=== PATIENT | male | born 1960 | race American Indian/Alaskan Native ===

== ENCOUNTER 2017-07-14 00:29 | Inpatient (IN) | payer OTHER ==
[2017-07-14] MEDS ORDERED: DUONEB *Not for PRN Use IH ONE (00:50)
[2017-07-14] MEDS ORDERED: TYLENOL PO ONE ×2 (00:58→08:05)
[2017-07-14] MEDS ORDERED: XOPENEX IH ONE ×2 (01:02→08:04)
[2017-07-14] MEDS ORDERED: ATROVENT IH ONE ×2 (01:02→08:05)
[2017-07-14 02:38] LABS: Basophils # (Auto) 0.1 K/mm3 (0.0-0.1); Basophils % (Auto) 0.9 % (0.0-1.8); Eosinophils # (Auto) 0.1 K/mm3 (0.0-0.4); Eosinophils % (Auto) 1.3 % (0.0-4.3); Hematocrit 41.6 % (35.5-45.6); Lymphocytes # (Auto) 1.7 K/mm3 (1.2-5.4); Lymphocytes % (Auto) 18.1 % (13.4-35.0); Mean Corpuscular HGB Conc 34 % (32-34); Mean Corpuscular Hemoglobin 31 pg (28-32); Mean Corpuscular Volume 92 fl (84-94); Monocytes # (Auto) 0.9 K/mm3 (0.0-0.8); Platelet Count 237 K/mm3 (140-440); Red Cell Distribution Width 14.4 % (13.2-15.2)
[2017-07-14 02:45] LABS: BUN/Creatinine Ratio 16; Blood Urea Nitrogen 14 mg/dL (9-20); Calcium 8.9 mg/dL (8.4-10.2); Hemolysis Index 2
--- NOTE | 2017-07-14 03:03 | XRay Report ---
FINAL REPORT EXAM: XR CHEST ROUTINE 2V HISTORY: cough TECHNIQUE: PA and lateral views of the chest were submitted. FINDINGS: Heart size and mediastinum appear normal. The lungs are clear. Pleural fluid is not seen. The bones and soft tissues are well maintained. IMPRESSION: No active chest disease.
[2017-07-14] MEDS ORDERED: MAGNESIUM SULFATE 2GM/50ML 2 GM/50 ML BAG IV ONE (06:45)
[2017-07-14] MEDS ORDERED: NORCO 5/325 PO ONE (08:05)
[2017-07-14] MEDS ORDERED: TESSALON PERLES PO ONE ×2 (08:05→17:29)
[2017-07-14] MEDS ORDERED: NACL 0.9% 1000 ML 1,000 ML IV ONE (08:06)
[2017-07-14] MEDS ORDERED: TORADOL IV ONE (08:10)
--- NOTE | 2017-07-14 08:11 | Emergency Department Report ---
ED Shortness of Breath HPI - General Chief Complaint: Adult Asthma Stated Complaint: SOB/AZUCENA Time Seen by Provider: 07/14/17 07:40 Source: patient Mode of arrival: Ambulatory Limitations: No Limitations - History of Present Illness Initial Comments: 57-year-old male with a past medical history asthma hypertension presents to the hospital complaining of cough, wheezing, fever, shortness of breath 3 days. Symptoms did not improve with home nebulized treatments. Positive moderate chest pain with cough and also chest tightness with wheezing. Patient denies receiving a flu shot this season. Cough productive of white sputum. No previous history of intubations. - Related Data Home Medications Medication Instructions Recorded Confirmed Last Taken Lisinopril [Zestril TAB] 40 mg PO DAILY 06/27/13 12/11/15 12/11/15 Hydrochlorothiazide [HCTZ] 2 cap PO QDAY 10/10/15 12/11/15 12/11/15 Previous Rx's Medication Instructions Recorded Last Taken Type ALBUTEROL Inhaler [ProAir HFA 2 puff IH BID PRN #1 inha 12/12/15 Unknown Rx Inhaler] ALBUTEROL NEB's [Proventil 0.083% 2.5 mg IH TID PRN #1 box 12/12/15 Unknown Rx NEBS] Prednisone [predniSONE 5 mg (6-Day 5 mg PO .TAPER #1 tab.ds.pk 12/12/15 Unknown Rx Pack, 21 Tabs)] Allergies Allergy/AdvReac Type Severity Reaction Status Date / Time No Known Allergies Allergy Verified 08/02/13 18:45 ED Review of Systems ROS: Stated complaint: SOB/AZUCENA Other details as noted in HPI Comment: All other systems reviewed and negative Other: Constitutional: as per hpi Eyes: No eye pain visual changes ENT: No ear pain or throat pain Neck: Denies pain Respiratory: as per hpi Cardiovascular: Denies palpitations, syncope GI: Denies abdominal pain, nausea, vomiting, diarrhea : Denies dysuria, urinary frequency, or urgency Musculoskeletal: Denies back pain, joint swelling Skin: Denies rash, lesions, erythema Neurologic: Denies headache, numbness, weakness Psychiatric: Denies suicidal ideation, hallucinations ED Past Medical Hx - Past Medical History Hx Hypertension: Yes Hx Congestive Heart Failure: No Hx Diabetes: No Hx Asthma: Yes Hx COPD: No Hx HIV: No - Surgical History Hx Cholecystectomy: Yes Hx Appendectomy: Yes Additional Surgical History: left ankle surgery - Social History Smoking Status: Current Some Day Smoker Substance Use Type: None - Medications Home Medications: Home Medications Medication Instructions Recorded Confirmed Last Taken Type Lisinopril [Zestril TAB] 40 mg PO DAILY 06/27/13 12/11/15 12/11/15 History Hydrochlorothiazide [HCTZ] 2 cap PO QDAY 10/10/15 12/11/15 12/11/15 History ALBUTEROL Inhaler [ProAir HFA 2 puff IH BID PRN #1 inha 12/12/15 Unknown Rx Inhaler] ALBUTEROL NEB's [Proventil 0.083% 2.5 mg IH TID PRN #1 box 12/12/15 Unknown Rx NEBS] Prednisone [predniSONE 5 mg (6-Day 5 mg PO .TAPER #1 tab.ds.pk 12/12/15 Unknown Rx Pack, 21 Tabs)] ED Physical Exam - General Limitations: No Limitations - Other Other exam information: General: No limitations, patient is alert in no acute distress Head exam: Atraumatic, normocephalic Eyes exam: Normal appearance ENT: Moist mucous membrane Neck exam: Normal inspection Respiratory exam: Poor air movement, positive wheezing, positive tachypnea, mild accessory muscle Cardiovascular: Tachycardic regular rate Abdomen: Soft, nondistended, and nontender, with normal bowel sounds, no rebound, or guarding Extremity: Full range of motion normal inspection no deformity, no calf tenderness or edema Back: Normal Inspection, full range of motion, no tenderness Neurologic: Alert, oriented x3, cranial nerves intact, no motor or sensory deficit Psychiatric: normal affect, normal mood Skin: Warm, dry, intact ED Course Vital Signs 07/14/17 07/14/17 07/14/17 00:33 00:59 01:01 Temperature 100.0 F H Pulse Rate 124 H Pulse Rate [ 122 H 121 H Anterior Bilateral Throughout] Respiratory 24 Rate Respiratory 24 24 Rate [Anterior Bilateral Throughout] Blood Pressure 125/95 O2 Sat by Pulse 96 Oximetry 07/14/17 07/14/17 07/14/17 01:35 01:45 06:32 Temperature 100.5 F H Pulse Rate 126 H Pulse Rate [ 122 H 120 H Anterior Bilateral Throughout] Respiratory 20 Rate Respiratory 22 20 Rate [Anterior Bilateral Throughout] Blood Pressure 138/89 O2 Sat by Pulse 95 Oximetry - Reevaluation(s) Reevaluation #1: 07/14/17 08:09 Patient received nebulized treatments, Solu-Medrol, magnesium, and Tylenol prior to my evaluation with minimal improvement in symptoms. Additional nebs, Tylenol, pain medicine, and cough medicine ordered prior to admission ED Medical Decision Making - Lab Data Result diagrams: 07/14/17 02:11 07/14/17 02:11 Lab Results 07/14/17 07/14/17 Range/Units 02:11 02:11 WBC 9.5 (4.5-11.0) K/mm3 RBC 4.50 (3.65-5.03) M/mm3 Hgb 14.0 (11.8-15.2) gm/dl Hct 41.6 (35.5-45.6) % MCV 92 (84-94) fl MCH 31 (28-32) pg MCHC 34 (32-34) % RDW 14.4 (13.2-15.2) % Plt Count 237 (140-440) K/mm3 Lymph % (Auto) 18.1 (13.4-35.0) % [place] % (Auto) 10.0 H (0.0-7.3) % Eos % (Auto) 1.3 (0.0-4.3) % Baso % (Auto) 0.9 (0.0-1.8) % Lymph # 1.7 (1.2-5.4) K/mm3 [place] # 0.9 H (0.0-0.8) K/mm3 Eos # 0.1 (0.0-0.4) K/mm3 Baso # 0.1 (0.0-0.1) K/mm3 Seg Neutrophils % 69.7 (40.0-70.0) % Seg Neutrophils # 6.6 (1.8-7.7) K/mm3 Sodium 137 (137-145) mmol/L Potassium 3.7 (3.6-5.0) mmol/L Chloride 95.7 L (98-107) mmol/L Carbon Dioxide 26 (22-30) mmol/L Anion Gap 19 mmol/L BUN 14 (9-20) mg/dL Creatinine 0.9 (0.8-1.5) mg/dL Estimated GFR > 60 ml/min BUN/Creatinine Ratio 16 % Glucose 100 (75-100) mg/dL Calcium 8.9 (8.4-10.2) mg/dL - EKG Data -: EKG Interpreted by Me (left anterior fascicular block) EKG shows normal: sinus rhythm, axis (-60), QRS complexes (103), ST-T waves (no stemi/t inv) Rate: tachycardia (123) - EKG Data When compared to previous EKG there are: no significant change - Radiology Data Radiology results: report reviewed (cxr: naf, read by radiology) - Medical Decision Making Plan to admit patient to hospital further treatment status asthmaticus. Positive acute infection possibly viral. Flu pending at disposition. No infiltrate seen. Patient cover with azithromycin for atypical pneumonia. - Differential Diagnosis pneumonia, bronchitis, viral syndrome, asthma Critical Care Time: No Critical care attestation.: If time is entered above; I have spent that time in minutes in the direct care of this critically ill patient, excluding procedure time. ED Disposition Clinical Impression: Acute asthmatic bronchitis, Fever, HTN (hypertension), Asthma with status asthmaticus in adult Disposition: DC-09 OP ADMIT IP TO THIS HOSP Is pt being admited?: Yes Condition: Stable Time of Disposition: 08:12 ([place]/Hospitalist)
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
[2017-07-14] MEDS ORDERED: ZOFRAN IV PRN (08:50)
[2017-07-14] MEDS ORDERED: PROVENTIL IH PRN (08:50)
[2017-07-14] MEDS ORDERED: TYLENOL PO PRN (08:50)
[2017-07-14] MEDS ORDERED: MORPHINE IV PRN (08:50)
[2017-07-14] MEDS ORDERED: DULCOLAX PR PRN (08:50)
[2017-07-14] MEDS ORDERED: ZITHROMAX 500 MG in NACL 0.9% 250ML 250 ML IV ONE (09:00)
[2017-07-14 09:33] LABS: Basophils # (Auto) 0.1 K/mm3 (0.0-0.1); Basophils % (Auto) 0.9 % (0.0-1.8); Eosinophils % (Auto) 0.3 % (0.0-4.3); Hematocrit 40.2 % (35.5-45.6); Hemoglobin 13.3 gm/dl (11.8-15.2); Lymphocytes # (Auto) 0.7 K/mm3 (1.2-5.4); Lymphocytes % (Auto) 7.4 % (13.4-35.0); Mean Corpuscular HGB Conc 33 % (32-34); Mean Corpuscular Hemoglobin 30 pg (28-32); Mean Corpuscular Volume 92 fl (84-94); Monocytes # (Auto) 0.3 K/mm3 (0.0-0.8); Monocytes % (Auto) 2.6 % (0.0-7.3); Platelet Count 244 K/mm3 (140-440); Red Blood Count 4.37 M/mm3 (3.65-5.03); Red Cell Distribution Width 14.3 % (13.2-15.2)
[2017-07-14 09:51] LABS: BUN/Creatinine Ratio 14; Blood Urea Nitrogen 11 mg/dL (9-20); Calcium 8.6 mg/dL (8.4-10.2); Hemolysis Index 10
[2017-07-14] MEDS ORDERED: NACL 0.9% 1000 ML 1,000 ML IV SCH (11:00)
[2017-07-14] MEDS: LOVENOX SUB-Q SCH (11:23)
[2017-07-14] MEDS: ZESTRIL PO SCH (11:23)
[2017-07-14] MEDS: DUONEB *Not for PRN Use IH SCH ×2 (15:50→20:51)
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
[2017-07-14] MEDS ORDERED: Fluarix Quad 2017-2018(36 MOS+ IM ONE (19:07)
[2017-07-14] MEDS ORDERED: PNEUMOVAX 23 IM ONE (19:07)
[2017-07-15] MEDS: DUONEB *Not for PRN Use IH SCH ×4 (02:09→21:05)
[2017-07-15 07:28] LABS: BUN/Creatinine Ratio 16; Blood Urea Nitrogen 13 mg/dL (9-20); Calcium 8.5 mg/dL (8.4-10.2); Hemolysis Index 7
[2017-07-15] MEDS ORDERED: ZITHROMAX 500 MG in NACL 0.9% 250ML 250 ML IV SCH (10:00)
[2017-07-15] MEDS: LOVENOX SUB-Q SCH (10:03)
[2017-07-15] MEDS: ZESTRIL PO SCH (10:33)
--- NOTE | 2017-07-15 11:29 | Progress Note ---
Assessment and Plan Assessment and plan: Acute respiratory failure due to asthma exacerbation. Mild improvement. Less shortness of breath. continue solumedrol Q 8hrs, Duoneb scheduled Q6h,, Oxygen supplementation. O2 sat 97%% on 4l/min oxygen Asthma exacerbation. solumedrol, Duoneb. Pulmonology following Hypertension. BP stable DVT prophylaxis with Lovenox subcut. Full code status History Interval history: Less shortness of breath less wheezing but still present Hospitalist Physical - Physical exam Narrative exam: GEN APPEARANCE : Not in acute distress, On Oxygen by GA HEENT: Normocephalic, Atraumatic NECK : supple, no JVD LUNGS: Bilateral rhonchi, wheeze, decreased breath sounds bilaterally HEART: S1 and S2 regular tachy, no murmurs, rubs or gallop ABD: Soft, non tender, non distended, normal bowel sounds EXT: No edema, no clubbing, no cyanosis, NEURO: Awake,alert, oriented x 3, no focal signs Psych: Normal mood - Constitutional Vitals: Temp Pulse Resp BP Pulse Ox 99.1 F 118 H 20 143/97 98 07/15/17 07:41 07/15/17 07:46 07/15/17 07:46 07/15/17 07:41 07/15/17 07:41 Results - Labs CBC & Chem 7: 07/14/17 09:09 07/15/17 05:05 Labs: Laboratory Last Values WBC 10.2 K/mm3 (4.5-11.0) 07/14/17 09:09 RBC 4.37 M/mm3 (3.65-5.03) 07/14/17 09:09 Hgb 13.3 gm/dl (11.8-15.2) 07/14/17 09:09 Hct 40.2 % (35.5-45.6) 07/14/17 09:09 MCV 92 fl (84-94) 07/14/17 09:09 MCH 30 pg (28-32) 07/14/17 09:09 MCHC 33 % (32-34) 07/14/17 09:09 RDW 14.3 % (13.2-15.2) 07/14/17 09:09 Plt Count 244 K/mm3 (140-440) 07/14/17 09:09 Lymph % (Auto) 7.4 % (13.4-35.0) L 07/14/17 09:09 [place] % (Auto) 2.6 % (0.0-7.3) 07/14/17 09:09 Eos % (Auto) 0.3 % (0.0-4.3) 07/14/17 09:09 Baso % (Auto) 0.9 % (0.0-1.8) 07/14/17 09:09 Lymph # 0.7 K/mm3 (1.2-5.4) L 07/14/17 09:09 [place] # 0.3 K/mm3 (0.0-0.8) 07/14/17 09:09 Eos # 0.0 K/mm3 (0.0-0.4) 07/14/17 09:09 Baso # 0.1 K/mm3 (0.0-0.1) 07/14/17 09:09 Seg Neutrophils % 88.8 % (40.0-70.0) H 07/14/17 09:09 Seg Neutrophils # 9.0 K/mm3 (1.8-7.7) H 07/14/17 09:09 Sodium 141 mmol/L (137-145) 07/15/17 05:05 Potassium 4.5 mmol/L (3.6-5.0) 07/15/17 05:05 Chloride 102.1 mmol/L (98-107) 07/15/17 05:05 Carbon Dioxide 24 mmol/L (22-30) 07/15/17 05:05 Anion Gap 19 mmol/L 07/15/17 05:05 BUN 13 mg/dL (9-20) 07/15/17 05:05 Creatinine 0.8 mg/dL (0.8-1.5) 07/15/17 05:05 Estimated GFR > 60 ml/min 07/15/17 05:05 BUN/Creatinine Ratio 16 % 07/15/17 05:05 Glucose 144 mg/dL (75-100) H 07/15/17 05:05 Calcium 8.5 mg/dL (8.4-10.2) 07/15/17 05:05
--- NOTE | 2017-07-15 15:57 | Progress Note ---
Assessment and Plan 57 y/o male with asthma exacerbation. 1. Continue BID pulmicort and brovana 2. Continue current dose of steroids 3. Will give lasix today. 4. PRN nebs Subjective Date of service: 07/15/17 Interval history: No acute events. Asleep. Breathing appears improved. Objective Vital Signs - 12hr 07/15/17 07/15/17 07/15/17 07:36 07:41 07:46 Temperature 99.1 F Pulse Rate 105 H Pulse Rate [ 104 H 118 H Anterior Bilateral Throughout] Respiratory 20 Rate Respiratory 20 20 Rate [Anterior Bilateral Throughout] Blood Pressure 143/97 O2 Sat by Pulse 97 98 Oximetry CBC and BMP: 07/14/17 09:09 07/15/17 05:05 Abnormal lab findings: Abnormal Labs 07/14/17 07/14/17 07/14/17 02:11 02:11 09:09 Lymph % (Auto) 7.4 L [place] % (Auto) 10.0 H Lymph # 0.7 L [place] # 0.9 H Seg Neutrophils % 88.8 H Seg Neutrophils # 9.0 H Sodium Chloride 95.7 L Glucose 07/14/17 07/15/17 09:09 05:05 Lymph % (Auto) [place] % (Auto) Lymph # [place] # Seg Neutrophils % Seg Neutrophils # Sodium 136 L Chloride 96.2 L Glucose 128 H 144 H
[2017-07-16] MEDS: DUONEB *Not for PRN Use IH SCH ×3 (02:05→13:23)
[2017-07-16] MEDS: LOVENOX SUB-Q SCH (09:46)
[2017-07-16] MEDS ORDERED: ZITHROMAX PO SCH (10:00)
--- NOTE | 2017-07-16 10:04 | Discharge Summary ---
Providers - Providers Date of Admission: 07/14/17 08:50 Date of discharge: 07/16/17 Attending physician: SUZE RAVI 07/14/17 08:54 Consult to Physician [CONS] Routine Consulting Provider: ARI THOMAS Reason For Exam: status asthmaticus Place consult to:: Linda Notified:: yes Phone number called:: [phone] If yes, spoke with:: Sarita Time called:: 13:13 Primary care physician: DILEEP CLEARY Hospitalization Condition: Stable Disposition: DC-30 STILL A PATIENT Exam - Constitutional Vitals: Temp Pulse Resp BP Pulse Ox 98.1 F 124 H 18 176/94 92 07/16/17 08:02 07/16/17 08:02 07/16/17 08:02 07/16/17 08:02 07/16/17 08:02 Plan Activity: advance as tolerated Diet: low fat, low cholesterol, low salt Additional Instructions: 1.Follow up with PCP in 1 week. 2.Follow up with Concetta Lopez in 1 week Follow up with: DILEEP CLEARY MD [Primary Care Provider] - 7 Days Prescriptions: Prednisone [predniSONE 10 mg (6-Day Pack, 21 Tabs)] 10 mg PO .TAPER #1 tab.ds.pk
[2017-07-16] MEDS ORDERED: COZAAR PO SCH (12:00)
--- NOTE | 2017-07-16 13:29 | Progress Note ---
Assessment and Plan 57 y/o male with asthma exacerbation. 1. Resume home asthma regimen 2. Needs prednisone taper vs medrol dose pack at discharge. Up to patient as he has had both in the past 3. No objection to discharge. 4. Would not send out on abx therapy. Subjective Date of service: 07/16/17 Interval history: Weaned off oxygen. Ready to go home. Objective Vital Signs - 12hr 07/16/17 07/16/17 07/16/17 02:05 02:17 07:19 Temperature Pulse Rate Pulse Rate [ 99 H 102 H 90 Anterior Bilateral Throughout] Respiratory Rate Respiratory 18 18 20 Rate [Anterior Bilateral Throughout] Blood Pressure O2 Sat by Pulse 98 Oximetry 07/16/17 07/16/17 07:30 08:02 Temperature 98.1 F Pulse Rate 124 H Pulse Rate [ 116 H Anterior Bilateral Throughout] Respiratory 18 Rate Respiratory 20 Rate [Anterior Bilateral Throughout] Blood Pressure 176/94 O2 Sat by Pulse 92 Oximetry CBC and BMP: 07/14/17 09:09 07/15/17 05:05 Abnormal lab findings: Abnormal Labs 07/14/17 07/14/17 07/14/17 02:11 02:11 09:09 Lymph % (Auto) 7.4 L [place] % (Auto) 10.0 H Lymph # 0.7 L [place] # 0.9 H Seg Neutrophils % 88.8 H Seg Neutrophils # 9.0 H Sodium Chloride 95.7 L Glucose 07/14/17 07/15/17 09:09 05:05 Lymph % (Auto) [place] % (Auto) Lymph # [place] # Seg Neutrophils % Seg Neutrophils # Sodium 136 L Chloride 96.2 L Glucose 128 H 144 H
[2017-07-16 14:33] VITALS: BP 148/90
== END 2017-07-16 18:15 | disposition home or self-care (01) | DRG 189 ==
LOC: ED 00:29 → 3A 08:50
PROVIDERS: ADMIT Internal Medicine; ATTEND Internal Medicine
PROC: 3E0234Z Introduction of Serum, Toxoid and Vaccine into Muscle, Percutaneous Approach (ICD-10-PCS; principal; 2017-07-14)
DX: J96.01 Acute respiratory failure with hypoxia (principal); J45.902 Unspecified asthma with status asthmaticus; I10 Essential (primary) hypertension; F17.200 Nicotine dependence, unspecified, uncomplicated; E66.9 Obesity, unspecified; Z79.899 Other long term (current) drug therapy; Z90.49 Acquired absence of other specified parts of digestive tract; Z68.34 Body mass index [BMI] 34.0-34.9, adult; Z82.49 Family history of ischemic heart disease and other diseases of the circulatory system; Z23 Encounter for immunization
CPT/HCPCS: 36415; 71046; 80048; 85025; 87400; 90686; 90732; 93005; 93010; 94640; 94760; 96374; 96375; J0456; J1650; J1885; J2930; J3475; J7030; J7050

== ENCOUNTER 2018-03-23 17:35 | Emergency (ER) | payer SELFPAY ==
[2018-03-23] MEDS ORDERED: NACL 0.9% 500 ML 500 ML IV ONE (17:53)
[2018-03-23 18:15] LABS: Basophils # (Auto) 0.1 K/mm3 (0.0-0.1); Basophils % (Auto) 0.8 % (0.0-1.8); Eosinophils # (Auto) 0.1 K/mm3 (0.0-0.4); Eosinophils % (Auto) 1.1 % (0.0-4.3); Hematocrit 40.1 % (35.5-45.6); Hemoglobin 13.2 gm/dl (11.8-15.2); Lymphocytes # (Auto) 1.7 K/mm3 (1.2-5.4); Lymphocytes % (Auto) 14.2 % (13.4-35.0); Mean Corpuscular HGB Conc 33 % (32-34); Mean Corpuscular Hemoglobin 31 pg (28-32); Mean Corpuscular Volume 93 fl (84-94); Monocytes # (Auto) 1.5 K/mm3 (0.0-0.8); Platelet Count 268 K/mm3 (140-440); Red Blood Count 4.31 M/mm3 (3.65-5.03); Red Cell Distribution Width 14.7 % (13.2-15.2)
[2018-03-23 18:24] LABS: INR 1.01 (0.87-1.13)
[2018-03-23 18:30] LABS: Alanine Aminotransferase 44 units/L (7-56); Albumin 3.9 g/dL (3.9-5); BUN/Creatinine Ratio 17; Blood Urea Nitrogen 15 mg/dL (9-20); Calcium 8.9 mg/dL (8.4-10.2); Hemolysis Index 5
--- NOTE | 2018-03-23 18:34 | Emergency Department Report ---
ED Fever HPI - General Chief Complaint: Fever Stated Complaint: PAIN IN RIGHT FOOT Time Seen by Provider: 03/23/18 18:11 Source: patient Exam Limitations: no limitations - History of Present Illness Initial Comments: 58-year-old male presents to the emergency room with complaints of fever. Patient status post right bunionectomy on yesterday. Patient reports since been having pain in right foot, in area of lateral and anterior great toe, since anesthesia wore off. Patient reports he had a prescription for Percocet filled but is not relieving the pain. Patient reports fever of 101. Patient called 's office and was told to come to the emergency room. Patient has history of asthma reports mild shortness of breath and wheezing, slight cough productive of white sputum. Patient denies urinary symptoms. Denies abdominal pain, nausea, vomiting. Timing/Duration: yesterday Fever Severity/Quality: greater than 100.5 F (101.2) Fever Therapy [employer]: Ibuprofen Associated Symptoms: cough, shortness of breath, other (foot pain). denies: abdominal pain, chest pain, headache, nausea/vomiting ED Review of Systems ROS: Stated complaint: PAIN IN RIGHT FOOT Other details as noted in HPI Comment: All other systems reviewed and negative Constitutional: fever Respiratory: cough, wheezing Cardiovascular: denies: chest pain Gastrointestinal: denies: abdominal pain, nausea, vomiting Musculoskeletal: other (foot pain) Neurological: denies: headache ED Past Medical Hx - Past Medical History Hx Hypertension: Yes Hx Congestive Heart Failure: No Hx Diabetes: No Hx Asthma: Yes Hx COPD: No Hx HIV: No - Surgical History Hx Cholecystectomy: Yes Hx Appendectomy: Yes Additional Surgical History: left ankle surgery, right bungeonectomy - Social History Smoking Status: Current Some Day Smoker Substance Use Type: Alcohol - Medications Home Medications: Home Medications Medication Instructions Recorded Confirmed Last Taken Type ALBUTEROL NEB's [Proventil 0.083% 2.5 mg IH BID 07/14/17 07/14/17 07/13/17 History NEBS] Albuterol Sulfate [Ventolin Hfa] 2 puff IH Q4-6H PRN 07/14/17 07/14/17 07/13/17 History Fluticasone [Flonase] 2 spray NS QDAY 07/14/17 07/14/17 Unknown History Fluticasone/Salmeterol [Advair 1 each IH BID 07/14/17 07/14/17 07/13/17 History 250-50 Diskus] Losartan [Cozaar] 50 mg PO QDAY 07/14/17 07/14/17 07/13/17 History hydroCHLOROthiazide [HCTZ] 25 mg PO QDAY 07/14/17 07/14/17 07/13/17 History Azithromycin [Zithromax TAB] 500 mg PO QDAY #4 tablet 07/16/17 Unknown Rx Prednisone [predniSONE 10 mg 10 mg PO .TAPER #1 tab.ds.pk 07/16/17 Unknown Rx (6-Day Pack, 21 Tabs)] Cephalexin [Keflex] 500 mg PO BID #10 capsule 03/23/18 Unknown Rx ED Physical Exam - General Limitations: No Limitations General appearance: alert, in no apparent distress - Head Head exam: Present: atraumatic, normocephalic - Eye Eye exam: Present: normal appearance - ENT ENT exam: Present: mucous membranes moist - Neck Neck exam: Present: normal inspection - Respiratory Respiratory exam: Present: normal lung sounds bilaterally, respiratory distress. Absent: wheezes - Cardiovascular Cardiovascular Exam: Present: regular rate, other (slightly tachycardic) - GI/Abdominal GI/Abdominal exam: Present: soft. Absent: distended, tenderness - Extremities Exam Extremities exam: Present: other (splint present to RLE, splint is not tight; dried blood on dressing, toes are warm, cap refill nml, DP pulses strong, pt able to flex and extend right great toe) - Neurological Exam Neurological exam: Present: alert, oriented X3 - Psychiatric Psychiatric exam: Present: normal affect, normal mood - Skin Skin exam: Present: warm, dry, intact, normal color. Absent: rash ED Course Vital Signs 03/23/18 03/23/18 03/23/18 17:40 19:02 19:05 Temperature 100.1 F H 99.0 F 98.8 F Pulse Rate 107 H 93 H Respiratory 20 18 Rate Blood Pressure 179/95 Blood Pressure 145/93 [Right] O2 Sat by Pulse 94 97 Oximetry 03/23/18 03/23/18 20:05 20:14 Temperature Pulse Rate 91 H Respiratory 13 18 Rate Blood Pressure Blood Pressure 143/86 [Right] O2 Sat by Pulse 96 Oximetry - Consultations Consultation #1: 03/23/18 21:[address] Minaya, foot surgeon, by number provided by pt. No answering service available, only voicemail messaging for scheduling appointments. ED Medical Decision Making - Lab Data Result diagrams: 03/23/18 17:59 03/23/18 17:59 - Medical Decision Making 58-year-old male status post right bunionectomy on yesterday with fever. Patient afebrile here in ED vital signs normal. She has not been tachycardic nor hypotensive. Patient appears in no acute distress. Her being given for pain relief. Mildly elevated white blood cell count, however lactate normal. UA, chest x-ray normal. Patient does not meet inpatient criteria at this time. Unsure of fever origin. Will give prescription for Keflex in case of cellulitis. Advised pt and to follow up w/ Dr Minaya tomorrow. - Differential Diagnosis sepsis, UTI, pneumonia, cellulitis Critical care attestation.: If time is entered above; I have spent that time in minutes in the direct care of this critically ill patient, excluding procedure time. ED Disposition Clinical Impression: Fever, Post-operative pain Disposition: DC-01 TO HOME OR SELFCARE Is pt being admited?: No Condition: Stable Instructions: Fever in Adults (ED) Prescriptions: Cephalexin [Keflex] 500 mg PO BID #10 capsule Referrals: SEAN MINAYA DPM [Referring] - DONN Time of Disposition: 21:35
[2018-03-23] MEDS ORDERED: MORPHINE IV ONE (19:48)
--- NOTE | 2018-03-23 19:58 | XRay Report ---
FINAL REPORT PROCEDURE: XR CHEST 1V AP TECHNIQUE: Chest radiograph anteroposterior view. CPT 52427 HISTORY: possible Sepsis COMPARISON: 07/13/2017 FINDINGS: Heart: Normal. Mediastinum/Vessels: Prominent bilateral tatum may be related to adenopathy or vascular prominence. Lungs/Pleural space: No infiltrate, effusion, or pneumothorax. Bony thorax: No acute osseous abnormality. Life support devices: None. IMPRESSION: Prominent bilateral tatum may be related to adenopathy or vascular prominence.
[2018-03-23 20:27] LABS: Bilirubin,Urine NEG (Negative); Blood,Urine SM (Negative); Color,Urine Yellow (Yellow); Protein,Urine <15 mg/dL mg/dL (Negative); Urobilinogen,Urine < 2.0 mg/dL (<2.0)
[2018-03-23 20:28] VITALS: BP 143/86
== END 2018-03-23 22:03 | disposition home or self-care (01) ==
LOC: ED 17:35
DX: R50.9 Fever, unspecified (principal); M79.671 Pain in right foot; G89.18 Other acute postprocedural pain; I10 Essential (primary) hypertension; J45.909 Unspecified asthma, uncomplicated; F17.200 Nicotine dependence, unspecified, uncomplicated; Z90.89 Acquired absence of other organs; Z90.49 Acquired absence of other specified parts of digestive tract
CPT/HCPCS: 36415; 71045; 80053; 81001; 82140; 82805; 85025; 85610; 87040; 87086; 93005; 93010; 96374; 99284; J2270; J7040

== ENCOUNTER 2018-09-22 05:57 | Emergency (ER) | payer OTHER ==
[2018-09-22 06:09] VITALS: BP 143/90
[2018-09-22] MEDS ORDERED: DECADRON IV ONE (06:19)
[2018-09-22] MEDS ORDERED: BENADRYL IV ONE (06:19)
[2018-09-22] MEDS ORDERED: PEPCID PO ONE (06:23)
--- NOTE | 2018-09-22 06:23 | Emergency Department Report ---
ED Rash HPI - HPI Chief Complaint: Skin Rash Stated Complaint: RASH OVER BODY Time Seen by Provider: 09/22/18 06:19 Duration: 3 Days Location: Other (generalized) Suspected Cause: Unknown Rash Symptoms: Yes Itching, No Facial Swelling, No Tongue/Oral Swelling, No Breathing Difficulties, No Choking Sensation, No Wheezing/Dyspnea, No Peeling, No Blistering, No Fever, No Lightheaded, No Malaise, No Myalgias Severity: severe Other History: 58-year-old -[place] male with a past medical history of hypertension comes in for a generalized rash that he's had for 3 days. He reports that he was in [place] and started having a rash status started to itch. Patient reports that the rash has gotten worse. Patient is unknown what this rash could be from. Patient has not taken anything for his rash. Patient denies any fever chills no nausea no vomiting. ED Review of Systems ROS: Stated complaint: RASH OVER BODY Other details as noted in HPI Comment: All other systems reviewed and negative Skin: rash ED Past Medical Hx - Past Medical History Previous Medical History?: Yes Hx Hypertension: Yes Hx Congestive Heart Failure: No Hx Diabetes: No Hx Asthma: Yes Hx COPD: No Hx HIV: No - Surgical History Past Surgical History?: Yes Hx Cholecystectomy: Yes Hx Appendectomy: Yes Additional Surgical History: left ankle surgery, right bungeonectomy - Social History Smoking Status: Former Smoker Substance Use Type: Alcohol - Medications Home Medications: Home Medications Medication Instructions Recorded Confirmed Last Taken Type ALBUTEROL NEB's [Proventil 0.083% 2.5 mg IH BID 07/14/17 07/14/17 07/13/17 History NEBS] Albuterol Sulfate [Ventolin Hfa] 2 puff IH Q4-6H PRN 07/14/17 07/14/17 07/13/17 History Fluticasone [Flonase] 2 spray NS QDAY 07/14/17 07/14/17 Unknown History Fluticasone/Salmeterol [Advair 1 each IH BID 07/14/17 07/14/17 07/13/17 History 250-50 Diskus] Losartan [Cozaar] 50 mg PO QDAY 07/14/17 07/14/17 07/13/17 History hydroCHLOROthiazide [HCTZ] 25 mg PO QDAY 07/14/17 07/14/17 07/13/17 History Azithromycin [Zithromax TAB] 500 mg PO QDAY #4 tablet 07/16/17 Unknown Rx Prednisone [predniSONE 10 mg 10 mg PO .TAPER #1 tab.ds.pk 07/16/17 Unknown Rx (6-Day Pack, 21 Tabs)] Cephalexin [Keflex] 500 mg PO BID #10 capsule 03/23/18 Unknown Rx Cetirizine HCl [ZyrTEC] 10 mg PO QDAY #14 capsule 09/22/18 Unknown Rx Famotidine [Pepcid] 20 mg PO BID #14 tablet 09/22/18 Unknown Rx Prednisone [predniSONE 10 mg 10 mg PO .TAPER #1 tab.ds.pk 09/22/18 Unknown Rx (6-Day Pack, 21 Tabs)] Rash Exam - Exam General: Vital signs noted. No distress. Alert and acting appropriately. HEENT: No Periorbital Edema, No Conjuctival Injection, No Chemosis, No Perioral Edema, No Tongue Edema, No Uvular Edema, No Compromised Airway, No Drooling Lungs: Yes Good Air Exchange (Normal Breath Sounds), No Wheezes, No Ronchi, No Stridor, No Cough, No Labored Respirations, No Retractions, No Use of Accessory Muscles, No Other Abnormal Lung Sounds Heart: Yes Regular, No Murmur Skin: Yes Urticarial Rash Other: Positive: Abdomen Normal, Neurologic Normal, Musculoskeletal Normal ED Course Vital Signs 09/22/18 06:08 Temperature 98.2 F Pulse Rate 101 H Respiratory 20 Rate Blood Pressure 143/90 O2 Sat by Pulse 98 Oximetry ED Medical Decision Making - Medical Decision Making Patient has been evaluated by this provider in [facility]. Patient be given an IV insertion with dexamethasone 5 mg IV, Benadryl 25 mg IV and Pepcid 20 mg by mouth. Critical care attestation.: If time is entered above; I have spent that time in minutes in the direct care of this critically ill patient, excluding procedure time. ED Disposition Clinical Impression: Urticaria Disposition: DC-01 TO HOME OR SELFCARE Is pt being admited?: No Does the pt Need Aspirin: No Condition: Stable Instructions: Urticaria (ED) Additional Instructions: Take medication as prescribed. Follow-up to primary care provider or gang leader if rash persists or gets worse. Prescriptions: Famotidine [Pepcid] 20 mg PO BID #14 tablet Prednisone [predniSONE 10 mg (6-Day Pack, 21 Tabs)] 10 mg PO .TAPER #1 tab.ds.pk Cetirizine HCl [ZyrTEC] 10 mg PO QDAY #14 capsule Referrals: [facility] [Provider Group] - 3-5 Days Forms: Work/School Release Form(ED)
[2018-09-22] MEDS ORDERED: PEPCID ONE (06:25)
== END 2018-09-22 07:07 | disposition home or self-care (01) ==
LOC: ED 05:57
DX: L50.9 Urticaria, unspecified (principal); I10 Essential (primary) hypertension; J45.909 Unspecified asthma, uncomplicated; Z90.49 Acquired absence of other specified parts of digestive tract; Z87.891 Personal history of nicotine dependence
CPT/HCPCS: 96374; 96375; 99283; J1100; J1200